=== PATIENT | male | born 1980 | race Caucasian/White ===

== ENCOUNTER 2019-12-02 14:45 | Inpatient (IN) | payer MEDICAID ==
[~2019-12-02] VITALS: Ht 180.3 cm; Wt 93.1 kg
[2019-12-02] MEDS ORDERED: diphenhydrAMINE 25mg capsule PO PRN (16:15)
[2019-12-02] MEDS ORDERED: traZODone 50mg tablet PO PRN (16:15)
[2019-12-02] MEDS ORDERED: loperamide 2mg capsule PO PRN (16:15)
[2019-12-02] MEDS ORDERED: haloperidol 5mg tablet PO PRN (16:15)
[2019-12-02] MEDS ORDERED: acetaminophen 325mg tablet PO PRN (16:15)
[2019-12-02] MEDS ORDERED: magnesium hydroxide 30ml (MOM) UD suspension PO PRN (16:15)
[2019-12-02] MEDS ORDERED: mag hydrox/Alum hydrox/simeth 30ml oral suspension PO PRN (16:15)
[2019-12-02] MEDS ORDERED: LORazepam 1 MG tablet PO PRN ×2 (16:15)
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
--- NOTE | 2019-12-02 17:10 | NUR ---
Pt. given an oral B52 r/t increased agitation during admission assessment, yelling at staff, "Don't poke me with that needle!" Pt. delusional, staff did not have a needle, but he was unable to be redirected. Pt. began kicking at staff and throwing items, no staff was harmed. Obtained order for B52 from Dr. Mckinley, pt. at first refusing, however then consented to oral B52 and was able to be redirected.
--- NOTE | 2019-12-02 18:16 | NUR ---
Pt's Mother: Erica .
[2019-12-02] MEDS ORDERED: OLANZapine **IM** 10 mg inj. IM PRN (18:20)
[2019-12-02] MEDS ORDERED: docusate sod 100mg capsule PO PRN (18:20)
[2019-12-02] MEDS: OLANZapine 2.5MG tablet PO SCH (19:37)
[2019-12-02] MEDS: DOXYCYCLINE 100MG CAPSULE PO SCH (19:37)
[2019-12-02] MEDS: diphenhydrAMINE 25mg capsule PO SCH (19:38)
[2019-12-02] MEDS: haloperidol 5mg tablet PO SCH (19:38)
[2019-12-02] MEDS: LORazepam 1 MG tablet PO SCH (19:40)
[2019-12-02] MEDS: cephalexin 500mg capsule PO SCH ×2 (19:49→23:24)
[2019-12-02 20:00] VITALS: BP 123/81
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
[2019-12-03 07:30] VITALS: BP 128/82
[2019-12-03 07:43] LABS: HEMOGLOBIN A1C 5.4 % (4.5-6.2)
[2019-12-03 07:45] LABS: CHOL/HDL RATIO 4.9 (0.00-4.99); CHOLESTEROL 136 MG/DL (0-200); HDL CHOLESTEROL 28 MG/DL (35-60); LDL CHOLESTEROL 87 MG/DL (50-100); TRIGLYCERIDES 96 MG/DL (20-135)
[2019-12-03] MEDS: cephalexin 500mg capsule PO SCH ×3 (08:19→16:22)
[2019-12-03] MEDS: DOXYCYCLINE 100MG CAPSULE PO SCH ×2 (08:19→20:00)
[2019-12-03] MEDS: OLANZapine 2.5MG tablet PO SCH ×2 (08:19→20:00)
[2019-12-03] MEDS: haloperidol 5mg tablet PO SCH ×2 (08:20→20:00)
[2019-12-03] MEDS: cyanocobalamin 500mcg tablet PO SCH (08:20)
[2019-12-03] MEDS: diphenhydrAMINE 25mg capsule PO SCH ×2 (08:20→20:00)
[2019-12-03] MEDS: thiamine 100mg tablet PO SCH (08:21)
[2019-12-03] MEDS: folic acid 1mg tablet PO SCH (08:21)
[2019-12-03] MEDS: LORazepam 1 MG tablet PO SCH ×2 (08:22→20:00)
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
[2019-12-04 07:55] VITALS: BP 127/70
[2019-12-04] MEDS: LORazepam 1 MG tablet PO SCH ×2 (08:08→20:32)
[2019-12-04] MEDS: diphenhydrAMINE 25mg capsule PO SCH ×2 (08:08→20:33)
[2019-12-04] MEDS: DOXYCYCLINE 100MG CAPSULE PO SCH ×2 (08:09→20:33)
[2019-12-04] MEDS: folic acid 1mg tablet PO SCH (08:09)
[2019-12-04] MEDS: cyanocobalamin 500mcg tablet PO SCH (08:09)
[2019-12-04] MEDS: thiamine 100mg tablet PO SCH (08:09)
[2019-12-04] MEDS: cephalexin 500mg capsule PO SCH ×3 (08:09→16:25)
[2019-12-04] MEDS: haloperidol 5mg tablet PO SCH (08:09)
[2019-12-04] MEDS: OLANZapine 2.5MG tablet PO SCH ×2 (08:10→20:33)
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
[2019-12-04] MEDS: acetaminophen 325mg tablet PO PRN (20:42)
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
[2019-12-05 07:45] VITALS: BP 116/73
[2019-12-05] MEDS: DOXYCYCLINE 100MG CAPSULE PO SCH ×2 (07:57→20:28)
[2019-12-05] MEDS: LORazepam 1 MG tablet PO SCH ×2 (07:58→20:27)
[2019-12-05] MEDS: cyanocobalamin 500mcg tablet PO SCH (07:58)
[2019-12-05] MEDS: folic acid 1mg tablet PO SCH (07:59)
[2019-12-05] MEDS: OLANZapine 2.5MG tablet PO SCH ×2 (07:59→20:27)
[2019-12-05] MEDS: thiamine 100mg tablet PO SCH (07:59)
[2019-12-05] MEDS: cephalexin 500mg capsule PO SCH ×3 (07:59→15:28)
[2019-12-05] MEDS: diphenhydrAMINE 25mg capsule PO SCH ×2 (08:00→20:28)
[2019-12-05] MEDS: acetaminophen 325mg tablet PO PRN (15:30)
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
[2019-12-05 20:38] VITALS: BP 134/79
[2019-12-06] MEDS: cephalexin 500mg capsule PO SCH ×3 (00:03→16:44)
--- NOTE | 2019-12-06 03:29 | NUR ---
[facility] NURSING PROGRESS NOTE Legal hold: 1370 Client on involuntary status for GD Report received from FRANNY Walters with SB[facility] Why are they here: Admitted from the [facility] for court competency; patient was found violating a restraining order and trespassing on property where she once lived with her boyfriend (who currently lives there and filed the order). Per chart, patient began to have mental health issues with the onset of menopause. Per patient, she has been hospitalized in [place], related to anxiety shortly after the onset of menopause. Assessment What has happened this shift: Pt in his room and was alert and oriented. Introduced myself and patient was receptive. He showed no sign of suicidal ideations. Patient frequently asked about God and wanted to know if i knew the holy spirit. He took all his night meds and was curious about his labs. Per patient s' request, he would like blood draws done at the [place] [facility]. Patient resting. S/I, H/I: Denies A/VH: Denies Sleep: through out the night (9 hrs) ADL's: Independent Group attendance: N/A Were Meds taken: yes Any med S/E: None noted Mental Status Exam Appearance: Well put together, wearing his own clothes, hair done. Eye contact: Good Behavior: Isolative Speech: Pressured. Mood: Labile. Goes between friendly and pleasant to irritated and obstinate Affect: Constricted Thought process: Circumstantial Thought Content: Not wanting to be forced to take meds. Cognition: A&Ox3 Insight: Poor Judgment: Poor Interventions PRN's used: None Therapeutic interventions: 1:1 assessment, provided therapeutic communication and active listening, medication administration/education/and monitoring its effects, encouraged bowel regimen, provide a safe and therapeutic environment, q15min safety checks. Restraints/seclusion/emergency medication: N/A Justification of Continued Inpatient Treatment: Patient requires evaluation and treatment for christianity of competency to stand trial.
[2019-12-06 07:36] VITALS: BP 116/71
[2019-12-06] MEDS: cyanocobalamin 500mcg tablet PO SCH (08:02)
[2019-12-06] MEDS: thiamine 100mg tablet PO SCH (08:02)
[2019-12-06] MEDS: diphenhydrAMINE 25mg capsule PO SCH ×2 (08:03→20:11)
[2019-12-06] MEDS: DOXYCYCLINE 100MG CAPSULE PO SCH ×2 (08:03→20:12)
[2019-12-06] MEDS: folic acid 1mg tablet PO SCH (08:03)
[2019-12-06] MEDS: OLANZapine 2.5MG tablet PO SCH ×2 (08:03→20:12)
[2019-12-06] MEDS: LORazepam 1 MG tablet PO SCH ×2 (08:03→20:11)
--- NOTE | 2019-12-06 11:13 | NUR ---
Sutures removed right foot, steri-strips applied, pt tolerated procedure well. Addendum: 12/06/19 at 1114 by Andra Hernandez RN (Lee) Amended: Links added.
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
[2019-12-06] MEDS ORDERED: HYDROcodone/acetaminophen 5mg/325mg tablet PO ONE (19:55)
[2019-12-06 20:00] VITALS: BP 127/88
[2019-12-06] MEDS: lactobacillus rhamnosus 10,000 MMU CELLS/CAPSULE PO SCH (20:12)
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
[2019-12-07 08:06] VITALS: BP 111/64
[2019-12-07] MEDS: DOXYCYCLINE 100MG CAPSULE PO SCH (08:06)
[2019-12-07] MEDS: OLANZapine 2.5MG tablet PO SCH (08:06)
[2019-12-07] MEDS: folic acid 1mg tablet PO SCH (08:06)
[2019-12-07] MEDS: diphenhydrAMINE 25mg capsule PO SCH (08:06)
[2019-12-07] MEDS: cyanocobalamin 500mcg tablet PO SCH (08:06)
[2019-12-07] MEDS: cephalexin 500mg capsule PO SCH ×2 (08:06→12:27)
[2019-12-07] MEDS: LORazepam 1 MG tablet PO SCH (08:07)
[2019-12-07] MEDS: lactobacillus rhamnosus 10,000 MMU CELLS/CAPSULE PO SCH (08:07)
[2019-12-07] MEDS: thiamine 100mg tablet PO SCH (08:23)
--- NOTE | 2019-12-07 08:41 | NUR ---
Initial: Pt admit w/ psychosis hx etoh, meth, and cannabis abuse per EMR receiving thiamin, folic, B12. PO 75-100% regular diet meeting needs. LBM 12/04. No nutrition concerns at this time. Will continue to monitor. Rec: 1. continue regular diet 2. bowel care as needed 3. wt per rx Addendum: 12/07/19 at [address] Amended: Links added.
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
[2019-12-07] MEDS ORDERED: DOXY-224 PO (16:32)
[2019-12-07] MEDS ORDERED: LACT1CAP26 PO (16:32)
[2019-12-07] MEDS ORDERED: TRAZ-251 PO (16:32)
[2019-12-07] MEDS ORDERED: OLAN10TA21 PO (16:32)
[2019-12-07] MEDS ORDERED: OLAN2.5T28 PO (16:32)
[2019-12-07] MEDS ORDERED: CEPH500C5 PO (16:32)
--- NOTE | 2019-12-07 17:51 | NUR ---
Pt discharged at 1735, ambulated off the unit accompanied by PCT to friend Henrry Mir awaiting him outside. Pt expressed understanding of his discharge prescriptions and instructions. Pt discharged on 2 different ABX, wound care education provided for right foot laceration, provided pt with some packets of ABX ointment and large bandaids. Pt expressed understanding of discharge instructions. Pt states he will [facility] with the [facility], he has an appointment scheduled near the end of this month.
== END 2019-12-07 17:35 | disposition short-term general hospital (02) | DRG 751 ==
LOC: ADULT MH 16:07
PROVIDERS: ADMIT Psychiatry & Neurology Psychiatry; ATTEND Psychiatry & Neurology Psychiatry
DX: F29 Unspecified psychosis not due to a substance or known physiological condition (principal); S91.311A Laceration without foreign body, right foot, initial encounter; F15.10 Other stimulant abuse, uncomplicated; F12.10 Cannabis abuse, uncomplicated; F10.10 Alcohol abuse, uncomplicated; F17.200 Nicotine dependence, unspecified, uncomplicated; Z59.0 Homelessness; X83.8XXA Intentional self-harm by other specified means, initial encounter; Y93.89 Activity, other specified; Y92.89 Other specified places as the place of occurrence of the external cause; Y99.8 Other external cause status
CPT/HCPCS: 36415; 80061; 83036; 87081; Q0163

== ENCOUNTER 2020-06-07 12:14 | Inpatient (IN) | payer MEDICAID, OTHER ==
[~2020-06-07] VITALS: Ht 147.3 cm; Wt 102.3 kg
[~2020-06-07 12:14] MED LIST: CEPH500C5 PO; DOXY-224 PO; LACT1CAP26 PO; OLAN10TA21 PO; OLAN2.5T28 PO; TRAZ-251 PO
[2020-06-07] MEDS ORDERED: acetaminophen 325mg tablet PO PRN ×2 (14:40)
[2020-06-07] MEDS ORDERED: magnesium hydroxide 30ml (MOM) UD suspension PO PRN (14:40)
[2020-06-07] MEDS ORDERED: loperamide 2mg capsule PO PRN (14:40)
[2020-06-07] MEDS ORDERED: traZODone 50mg tablet PO PRN (14:40)
[2020-06-07] MEDS ORDERED: mag hydrox/Alum hydrox/simeth 30ml oral suspension PO PRN (14:40)
[2020-06-07 14:45] VITALS: BP 112/70
[2020-06-07] MEDS ORDERED: AMOX-117 PO (16:33)
[2020-06-07] MEDS ORDERED: olanzapine 10mg tablet PO PRN (16:40)
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
[2020-06-07 19:41] VITALS: BP 117/67
[2020-06-07] MEDS: amox tr/potassium clavulanate 875/125mg TAB PO SCH ×2 (20:00→20:03)
[2020-06-07] MEDS: olanzapine 10mg tablet PO SCH ×2 (20:03→20:30)
--- NOTE | 2020-06-07 23:36 | NUR ---
Nursing Progress Note Legal hold: 5150 for grave disability. Report received from Marine BLANTON with use of SBAR Why are they here: The patient was admitted on a 5150 hold for grave disability after being medically cleared in the ER. He was initially brought to the ER by [facility] deputies from the retirement 2nd to disorganized and bizarre behaviors while incarcerated. He had reportedly "playing in the toilet and drinking from it" He had not slept for two nights in the retirement. Prior to his arrest he had been using methamphetamine and had a positive tox screen in the retirement. While being medically cleared in the ER his behavior continued to be disordered and had to be redirected from eating non food items ie, bath wipes and IV end caps. Assessment What has happened this shift: The patient has been sleeping soundly since the beginning of the shift. He was difficult to fully assess because he was drowsy and his replies were mumbling and difficult to understand at times. He denied that he heard voices or felt paranoid. He stated his mood was "good" He was asked why he cut his foot and he stated, "for not believing in deloris" "To get some help and release some energy" but he was not able to elaborate. He refused all medications offered including the ABX for his foot. Insight and judgement are very impaired. Eye contact was minimal. Justification of Continued Inpatient Treatment: The patient remains disorganized with odd and bizarre behaviors. He is refusing all medications. He remains a risk to harm himself 2nd to his delusional thoughts.
[2020-06-08] MEDS: amox tr/potassium clavulanate 875/125mg TAB PO SCH ×3 (03:34→22:30)
[2020-06-08] MEDS: LORazepam 1 MG tablet PO PRN (03:34)
[2020-06-08 08:51] VITALS: BP 126/56
[2020-06-08 11:07] LABS: HEMOGLOBIN A1C 5.3 % (4.5-6.2)
[2020-06-08 11:13] LABS: CHOLESTEROL 124 MG/DL (0-200); HDL CHOLESTEROL 31 MG/DL (35-60); LDL CHOLESTEROL 80 MG/DL (50-100); TRIGLYCERIDES 92 MG/DL (20-135)
--- NOTE | 2020-06-08 17:49 | NUR ---
Nursing Progress Note: Legal hold: 5150 for grave disability. Report received from Palmira BLANTON with use of SBAR Why are they here: The patient was admitted on a 5150 hold for grave disability after being medically cleared in the ER. He was initially brought to the ER by [facility] deputies from the half-way 2nd to disorganized and bizarre behaviors while incarcerated. He had reportedly "playing in the toilet and drinking from it" He had not slept for two nights in the half-way. Prior to his arrest he had been using methamphetamine and had a positive tox screen in the half-way. While being medically cleared in the ER his behavior continued to be disordered and had to be redirected from eating non food items ie, bath wipes and IV end caps. Assessment What has happened this shift: Pt was out of room for meals though mostly isolative to self today. At one point pt was repeatedly pressing his call light. Staff would answer the light and pt would indicate that he felt scared and wanted his family. Pt continues to be disorganized. He repeatedly strips the beds in his room, staff remakes them and he strips them again. Pt denied depression stating, "no, I'm better." Pt has decided he likes "B" bed better than "A" bed. Before dinner, pt had once again had completely stripped both beds in the room. He was sitting in a chair coloring in a coloring book. Asked pt why he had stripped the beds. Pt replied that he was getting out of here tonight. Reality orientation provided that he was not being discharged tonight and soon would need some linens to sleep. Pt does not remember how he got here. When asked him why he thought he was here, he replied, "trying to kill myself with alcohol and drugs." Asked pt if he remembered why he had been in half-way. Pt replied, "fear." Asked pt what he was afraid of, pt answered, "taking advantage of my heart." S/I, H/I: Pt denies. A/VH: Pt denies. Sleep: Pt slept 10 hours last night per noc shift report. ADL's: Independent Group attendance: No Were meds taken: Yes though no psych meds, just po ABX Any med S/E: N/A Mental Status Exam Appearance: Somewhat overweight man with balding greyish, reddish hair, ortega, and moustache wearing clean green unit scrubs. Eye contact: Good Behavior: Disorganized, repeatedly pressing call light and stripping both beds in his room, mostly isolative to self. Speech: Clear, audible, poverty of speech Mood: Anxious Affect: Disorganized Thought process: Poverty of thought, disorganized, paranoid, delusional Thought Content: He feels scared and wants his family. Cognition: A/O X 2 Insight: Impaired Judgment: Impaired Interventions PRN's used: None Therapeutic interventions: 1:1 assessment, therapeutic communication, active listening, ensured contract for safety, PO ABX administration/education/monitoring, encouragement to come out of room, encouragement to take medications, behavior monitoring and intervention as needed; reality orientation, redirection, reassurance that pt is safe here, positive reinforcement, Q 15 minute safety checks. Restraints/seclusion/emergency medication: None Justification of Continued Inpatient Treatment: The patient remains disorganized with odd and bizarre behaviors. He is resistant to medications. He remains a risk to harm himself 2nd to his delusional thoughts.
[2020-06-08] MEDS ORDERED: olanzapine 10mg tablet PO SCH (21:55)
[2020-06-09] MEDS: LORazepam 1 MG tablet PO PRN ×2 (01:43→19:31)
--- NOTE | 2020-06-09 06:17 | NUR ---
Nursing Progress Note: Legal hold: 5150 for grave disability. Report received from FRANNY Cates with use of SBAR Why are they here: The patient was admitted on a 5150 hold for grave disability after being medically cleared in the ER. [facility] to disorganized and bizarre behaviors while incarcerated. He had reportedly "playing in the toilet and drinking from it" He had not slept for two nights in the detention. Prior to his arrest he had been using methamphetamine and had a positive tox screen in the detention. While being medically cleared in the ER his behavior continued to be disordered and had to be redirected from eating non food items ie, bath wipes and IV end caps. Assessment What has happened this shift: Patient is awake and isolating in his room, he sleeps intermittently. Patient is disorganized. Tangential speech. Patient is friendly. Patient takes his medication. Patient later came to nursing station and advised the garment inspector that he had pee'd on his medication. It is unknown if the medications were cheeked or regurgitated. Late night this patient paced the hallways and present with paranoia. S/I, H/I: Pt denies. A/VH: Pt denies. Sleep: See sleep hours. ADL's: Independent. Group attendance: No group on nights. Were meds taken: Non compliant. Any med S/E: N/A Mental Status Exam Appearance: Elderly male, disheveled, wearing scrups. Eye contact: Fair. Behavior: Disorganized, Isolative and disorganized. Speech: Clear, audible, poverty of speech, Mood: Mild anxiety. Affect: Disorganized. Thought process: Poverty of thought, disorganized, paranoid, delusional Thought Content: Talks happily about his five year old son.. Cognition: A/O X 2, Insight: Poor. Judgment: Poor. Interventions PRN's used: None. Therapeutic interventions: 1:1 assessment, therapeutic communication, active listening, ensured contract for safety, PO ABX administration/education/monitoring, encouragement to come out of room, encouragement to take medications, behavior monitoring and intervention as needed; reality orientation, redirection, reassurance that pt is safe here, positive reinforcement, Q 15 minute safety checks. Restraints/seclusion/emergency medication: None. Justification of Continued Inpatient Treatment: The patient remains disorganized with odd and bizarre behaviors. He is resistant to medications. He remains a risk to harm himself 2nd to his delusional thoughts.
[2020-06-09] MEDS: amox tr/potassium clavulanate 875/125mg TAB PO SCH ×2 (08:05→19:31)
[2020-06-09 09:55] VITALS: BP 136/85
--- NOTE | 2020-06-09 10:00 | NUR ---
Group Therapy: Process Group This Clinicians goals for this process group were as follows: (1) Ask scaling questions about patients current anxiety, depression, and irritability symptoms as a check-in. (2) Share with patients psychoeducation about the importance of being able to identify safe, and supportive people who can assist them with their mental and emotional needs. (3) Share psychoeducation on interpersonal boundaries and considerations to assist patients in developing the ability to discern which groups and individuals will be helpful in assisting them during times of emotional escalation and crisis. (4) Engage patients in discussion of the topics discussed within the group milieu. Patient presented as properly oriented x4 during the process group. Patient was dressed in green hospital scrubs within the milieu. Psychomotor activity was unremarkable. Patient's thought content was clear, and concrete. Patient's thought process was clear, coherent, and linear. This Clinician did not observe Patient responding to any internal stimuli during session. The rate, latency, and tone of Patients speech was within normal limits. Patients speech was clear, and understandable. Patient maintained regular eye contact with this Clinician. Patient presented in calm euthymic mood, with congruent affect during the process group. Patient presented as open, cooperative, and nonobtrusive within the group milieu. Patient presented as verbally engaged during the process group discussion of interpersonal boundaries in the context of identifying safe, and supportive people that one could speak to in order to receive mental health support. Patient offered the insightful comment that one needed to be honest, and, "Love" oneself in order to be able to reach out successfully to others to receive appropriate mental health care. This Clinician validated the importance of healthy self-love and self-care as it relates to involving health support people in patients' lives. Asif Hidalgo MA, ZARA Addendum: 06/10/20 at 0844 by Asif Hidalgo Amended: Links added.
--- NOTE | 2020-06-09 17:43 | NUR ---
Nursing Progress Note: Legal hold: 5150 for grave disability. Report received from Palmira BLANTON with use of SBAR Why are they here: The patient was admitted on a 5150 hold for grave disability after being medically cleared in the ER. He was initially brought to the ER by [facility] to disorganized and bizarre behaviors while incarcerated. He had reportedly "playing in the toilet and drinking from it" He had not slept for two nights in the [facility]. Prior to his arrest he had been using methamphetamine and had a positive tox screen in the [facility]. While being medically cleared in the ER his behavior continued to be disordered and had to be redirected from eating non food items ie, bath wipes and IV end caps. Assessment What has happened this shift: Pt up and visible on the unit today. Pt has bright affect and is friendly upon approach. Pt denies depression and denies suicidal thoughts. Pt also denies homicidal thoughts. Pt asked for the guitar and played for a few hours in his room taking turns with his roommate. They did not have any meaningful conversation, just playing the guitar which pt is very talented in. Pt did not exhibit any delusional thought patterns today. Pt did c/o bilateral feet hurting this afternoon and was given tylenol and directed to elevate his feet which he complied with. S/I, H/I: Pt denies. A/VH: Pt denies. Sleep:5.5 hours on noc ADL's: Independent Group attendance: No Were meds taken: Yes though no psych meds, just po ABX Any med S/E: N/A Mental Status Exam Appearance: Somewhat overweight man with balding greyish, reddish hair, ortega, and moustache wearing clean green unit scrubs. Eye contact: Good Behavior: Disorganized, repeatedly pressing call light and stripping both beds in his room, mostly isolative to self. Speech: Clear, audible, poverty of speech Mood: Anxious Affect: Disorganized Thought process: Poverty of thought, disorganized, paranoid, delusional Thought Content: He feels scared and wants his family. Cognition: A/O X 2 Insight: Impaired Judgment: Impaired Interventions PRN's used: None Therapeutic interventions: 1:1 assessment, therapeutic communication, active listening, ensured contract for safety, PO ABX administration/education/monitoring, encouragement to come out of room, encouragement to take medications, behavior monitoring and intervention as needed; reality orientation, redirection, reassurance that pt is safe here, positive reinforcement, Q 15 minute safety checks. Restraints/seclusion/emergency medication: None Justification of Continued Inpatient Treatment: The patient remains disorganized with odd and bizarre behaviors. He is resistant to medications. He remains a risk to harm himself 2nd to his delusional thoughts.
[2020-06-09 19:00] VITALS: BP 136/85
[2020-06-09] MEDS ORDERED: OLANZapine 5mg rapidly disint. tablet PO ONE (19:30)
[2020-06-09] MEDS ORDERED: OLANZAPINE 5 MG TABLET PO SCH (21:00)
--- NOTE | 2020-06-10 06:24 | NUR ---
Nursing Progress Note: Legal hold: 5150 for grave disability. Report received from FRANNY Bergman with use of SBAR Why are they here: The patient was admitted on a 5150 hold for grave disability after being medically cleared in the ER. [facility] disorganized and bizarre behaviors while incarcerated. He had reportedly "playing in the toilet and drinking from it" He had not slept for two nights in the half-way. Prior to his arrest he had been using methamphetamine and had a positive tox screen in the half-way. While being medically cleared in the ER his behavior continued to be disordered and had to be redirected from eating non food items ie, bath wipes and IV end caps. Assessment What has happened this shift: Patient isolates in room. Interview by YARELIS Moura. Patient advised he has a mental illness, psychosis. 1:1 Interview with patient in room. Patient tells this chart writer that as soon as he leaves this unit he will drink alcohol, have sex, and play music. In addition he believes drinking alcohol will eliminate his psychosis. YARELIS Moura advised. S/I, H/I: Pt denies. A/VH: Pt denies. Sleep: See sleep hours. ADL's: Independent. Group attendance: No group on nights. Were meds taken: Non compliant. Any med S/E: N/A Mental Status Exam Appearance: Elderly male, disheveled, wearing scrups. Eye contact: Fair. Behavior: Disorganized, Isolative and disorganized. Speech: Clear, audible, poverty of speech, Mood: Mild anxiety. Affect: Disorganized. Thought process: Poverty of thought, disorganized, paranoid, delusional Thought Content: Talks happily about his five year old son.. Cognition: A/O X 2, Insight: Poor. Judgment: Poor. Interventions PRN's used: None. Therapeutic interventions: 1:1 assessment, therapeutic communication, active listening, ensured contract for safety, PO ABX administration/education/monitoring, encouragement to come out of room, encouragement to take medications, behavior monitoring and intervention as needed; reality orientation, redirection, reassurance that pt is safe here, positive reinforcement, Q 15 minute safety checks. Restraints/seclusion/emergency medication: None. Justification of Continued Inpatient Treatment: The patient remains disorganized with odd and bizarre behaviors. He is resistant to medications. He remains a risk to harm himself 2nd to his delusional thoughts.
[2020-06-10 08:06] VITALS: BP 113/81
[2020-06-10] MEDS: amox tr/potassium clavulanate 875/125mg TAB PO SCH ×2 (08:32→20:09)
[2020-06-10] MEDS: LORazepam 1 MG tablet PO PRN (16:12)
--- NOTE | 2020-06-10 16:16 | NUR ---
Nursing Progress Note: Legal hold: 5150 for grave disability. Report received from Erica Stover RN with use of SBAR Why are they here: The patient was admitted on a 5150 hold for grave disability after being medically cleared in the ER. [facility] and bizarre behaviors while incarcerated. He had reportedly "playing in the toilet and drinking from it" He had not slept for two nights in the correction. Prior to his arrest he had been using methamphetamine and had a positive tox screen in the correction. While being medically cleared in the ER his behavior continued to be disordered and had to be redirected from eating non food items ie, bath wipes and IV end caps. Assessment What has happened this shift: Pt RIS most of the shift. Pt requested Ativan stating, "I think I need something I'm out here laughing so loud and not sure why." Ativan given as requested then pt immediately went in the BR and began throwing up states, "I just don't like drugs." S/I, H/I: Pt denies. A/VH: Pt denies. Sleep:Did not sleep this shift ADL's: Independent Group attendance: No Were Meds taken: Yes though no psych Meds, just po ABX Any med S/E: N/A Mental Status Exam Appearance: Green Scrubs Eye contact: Good Behavior: Disorganized Speech: Clear, audible, poverty of speech Mood: Anxious Affect: Disorganized Thought process: Poverty of thought, disorganized, paranoid, delusional Thought Content: He feels scared and wants his family. Cognition: A/O X 2 Insight: Impaired Judgment: Impaired Interventions PRN's used: None Therapeutic interventions: Provided therapeutic communication and active listening throughout the shift due to pt RIS all day, encouraged attendance of group and shower, medication administration/education/monitoring, q 15 min safety checks. Restraints/seclusion/emergency medication: None Justification of Continued Inpatient Treatment: The patient remains disorganized with odd and bizarre behaviors. He is resistant to medications. He remains a risk to harm himself 2nd to his delusional thoughts.
[2020-06-10] MEDS: divalproex sod 125mg sprinkle cap PO SCH (17:37)
[2020-06-10 19:17] VITALS: BP 131/102
[2020-06-10 19:18] VITALS: BP 129/93
[2020-06-10] MEDS: oxcarbazepine 150mg tablet PO SCH (20:10)
[2020-06-10] MEDS: docusate sod 100mg capsule PO SCH (20:10)
[2020-06-10] MEDS ORDERED: ARIPIPRAZOLE 10 MG TABLET PO SCH (21:00)
[2020-06-10] MEDS ORDERED: OLANZapine 5mg rapidly disint. tablet PO SCH (21:00)
--- NOTE | 2020-06-11 04:51 | NUR ---
Nursing Progress Note: Legal hold: 5150 for grave disability. Report received from FRANNY Bergman with use of SBAR Why are they here: The patient was admitted on a 5150 hold for grave disability after being medically cleared in the ER. [facility] and bizarre behaviors while incarcerated. He had reportedly "playing in the toilet and drinking from it" He had not slept for two nights in the [facility]. Prior to his arrest he had been using methamphetamine and had a positive tox screen in the [facility]. While being medically cleared in the ER his behavior continued to be disordered and had to be redirected from eating non food items ie, bath wipes and IV end caps. Assessment What has happened this shift: Patient was observed sitting in the hallway talking under his breath to no one in particular. He is very pleasant on approach and makes good eye contact and smiles. He states, "Yeah I don't even know why I am here, I do drugs and should probably just be in a rehab not a mental hospital." He then asks job specification writer if he laughs too much or too little. "How much is a normal rate of laughter?" He is upbeat and lighthearted on interview and compliant with HS medications. S/I, H/I: Pt denies. A/VH: Pt denies. Sleep: See sleep hours. ADL's: Independent. Group attendance: No group on nights. Were meds taken: compliant Any med S/E: None reported, none observed Mental Status Exam Appearance: WNL Eye contact: Fair Behavior: Disorganized Speech: Clear, audible Mood: upbeat Affect: jovial Thought process: disorganized Thought Content: wanting to go to rehab Cognition: A/O X 2, Insight: Poor. Judgment: Poor. Interventions PRN's used: None. Therapeutic interventions: 1:1 assessment, therapeutic communication, active listening, ensured contract for safety, PO ABX administration/education/monitoring, encouragement to come out of room, encouragement to take medications, behavior monitoring and intervention as needed; reality orientation, redirection, reassurance that pt is safe here, positive reinforcement, Q 15 minute safety checks. Restraints/seclusion/emergency medication: None. Justification of Continued Inpatient Treatment: The patient remains disorganized with odd and bizarre behaviors. He is in need of medication stabilization
[2020-06-11 07:58] VITALS: BP 107/65
[2020-06-11] MEDS: amox tr/potassium clavulanate 875/125mg TAB PO SCH ×2 (08:31→21:04)
[2020-06-11] MEDS: oxcarbazepine 150mg tablet PO SCH ×2 (08:31→21:05)
[2020-06-11] MEDS: divalproex sod 125mg sprinkle cap PO SCH ×3 (08:31→17:59)
[2020-06-11] MEDS: docusate sod 100mg capsule PO SCH ×2 (08:31→21:03)
--- NOTE | 2020-06-11 14:57 | NUR ---
Nursing Progress Note: Legal hold: 5150 for grave disability. Report received from Erica Stover RN with use of SBAR Why are they here: [facility] to disorganized and bizarre behaviors while incarcerated. He had reportedly "playing in the toilet and drinking from it" He had not slept for two nights in the long term. Prior to his arrest he had been using methamphetamine and had a positive tox screen in the long term. While being medically cleared in the ER his behavior continued to be disordered and had to be redirected from eating non food items ie, bath wipes and IV end caps. Assessment What has happened this shift: Provided education on pt's medications and his diagnosis'. Pt agrees with treatment yet ask numerous times throughout the day if this nurse knows when he will be leaving. Pt referred to his current provider. Pt is calm today his mood is less anxious. Some pacing but less then yesterday. S/I, H/I: Pt denies. A/VH: Pt denies. Sleep: a few short naps during the day ADL's: Independent Group attendance: No Were Meds taken: Yes Any med S/E: pt c/o sedation in the AM encouraged him to talk to his provider today regarding night meds. Also education provided on starting new meds and the body getting rested up. Mental Status Exam Appearance: Green Scrubs Eye contact: Good Behavior: cooperative; pacing some due to anticipation of discharge Speech: Clear, audible, poverty of speech Mood: decreased anxiety yet remains somewhat anxious Affect: blunted Thought process: Poverty of thought, disorganized, paranoid, delusional Thought Content: He feels scared and wants his family. Cognition: A/O X 2 Insight: Impaired Judgment: Impaired Interventions PRN's used: None Therapeutic interventions: Provided therapeutic communication and active listening, encouraged attendance of group and shower, medication administration/education/monitoring, q 15 min safety checks. Restraints/seclusion/emergency medication: None Justification of Continued Inpatient Treatment: The patient remains disorganized with odd and bizarre behaviors. He is resistant to medications. He remains a risk to harm himself 2nd to his delusional thoughts.
[2020-06-11] MEDS ORDERED: OLANZapine 5mg rapidly disint. tablet PO PRN (17:35)
[2020-06-11] MEDS: LORazepam 1 MG tablet PO PRN (18:39)
[2020-06-11 19:35] VITALS: BP 137/71
[2020-06-11] MEDS ORDERED: aripiprazole 5mg tablet PO SCH (21:00)
--- NOTE | 2020-06-12 00:49 | NUR ---
Nursing Progress Note: Legal hold: 5250 for grave disability. Report received from FRANNY Bergman with use of SBAR Why are they here: The patient was admitted on a 5150 hold for grave disability after being medically cleared in the ER. [facility] and bizarre behaviors while incarcerated. He had reportedly "playing in the toilet and drinking from it" He had not slept for [facility] nights in the [facility]. Prior to his arrest he had been using methamphetamine and had a [facility] tox screen [facility] the [facility]. While being medically cleared in the ER his behavior continued to be disordered and had to be redirected from eating non food items ie, bath wipes and IV end caps. Assessment What has happened this shift: Patient was up in the hallway at shift change, but isolates to his room most of the shift. He is observed keeping to himself, and appearing inwardly focused. He is not very talkative, but is polite on approach. He lays in bed with headphones on and falls asleep early. He is woken up and is compliant with HS medications and 1:1 assessment. S/I, H/I: Pt denies. A/VH: Pt denies. Sleep: See sleep hours. ADL's: Independent. Group attendance: No group on nights. Were meds taken: compliant Any med S/E: None reported, none observed Mental Status Exam Appearance: WNL Eye contact: Fair Behavior: Disorganized Speech: Clear, audible Mood: upbeat Affect: jovial Thought process: disorganized Thought Content: wanting to go to rehab Cognition: A/O X 2, Insight: Poor. Judgment: Poor. Interventions PRN's used: None. Therapeutic interventions: 1:1 assessment, therapeutic communication, active listening, ensured contract for safety, PO ABX administration/education/monitoring, encouragement to come out of room, encouragement to take medications, behavior monitoring and intervention as needed; reality orientation, redirection, reassurance that pt is safe here, positive reinforcement, Q 15 minute safety checks. Restraints/seclusion/emergency medication: None. Justification of Continued Inpatient Treatment: The patient remains disorganized with odd and bizarre behaviors. He is in need of medication stabilization
[2020-06-12 08:00] VITALS: BP 108/60
[2020-06-12] MEDS: amox tr/potassium clavulanate 875/125mg TAB PO SCH ×2 (08:39→20:24)
[2020-06-12] MEDS: oxcarbazepine 150mg tablet PO SCH ×2 (08:39→20:24)
[2020-06-12] MEDS: docusate sod 100mg capsule PO SCH ×2 (08:39→20:24)
[2020-06-12] MEDS: divalproex sod 125mg sprinkle cap PO SCH ×3 (08:39→17:51)
--- NOTE | 2020-06-12 14:38 | NUR ---
Reassessment: Pt PO 75-100% avg regular diet meeting needs. Last BM 06/11. No nutrition concerns at this time. Will continue to monitor. Recommend: 1. continue regular diet 2. bowel care as needed 3. weekly weights Addendum: 06/12/20 at [address] Amended: Links added.
[2020-06-12] MEDS: LORazepam 1 MG tablet PO PRN (15:28)
--- NOTE | 2020-06-12 16:14 | NUR ---
Nursing Progress Note: Legal hold: 5150 for grave disability. Report received from FRANNY Schmitz with use of SBAR Why are they here: [facility] to disorganized and bizarre behaviors while incarcerated. He had reportedly "playing in the toilet and drinking from it" He had not slept for two nights in the [facility]. Prior to his arrest he had been using methamphetamine and had a positive tox screen in the [facility]. While being medically cleared in the ER his behavior continued to be disordered and had to be redirected from eating non food items ie, bath wipes and IV end caps. Assessment What has happened this shift: Pt observed watching football, playing the guitar and interacting with peers. He became "sad" and anxious with another pt became mentally unstable and requested an Ativan. Pt given Ativan PRN with a snack then laid down and rested. S/I, H/I: Pt denies. A/VH: Pt denies. Sleep: a few short naps during the day ADL's: Independent Group attendance: No Were Meds taken: Yes Any med S/E: None noted or reported today Mental Status Exam Appearance: Green Scrubs Eye contact: Good Behavior: cooperative; pacing some due to anticipation of discharge Speech: Clear, audible Mood: decreased anxiety yet remains somewhat anxious Affect: blunted Thought process: Poverty of thought, disorganized, paranoid, delusional Thought Content: He feels scared and wants his family. Cognition: A/O X 2 Insight: Impaired Judgment: Impaired Interventions PRN's used: None Therapeutic interventions: Provided therapeutic communication and active listening, encouraged attendance of group and shower, medication administration/education/monitoring, q 15 min safety checks. Restraints/seclusion/emergency medication: None Justification of Continued Inpatient Treatment: The patient remains disorganized with odd and bizarre behaviors. He is resistant to medications. He remains a risk to harm himself 2nd to his delusional thoughts.
[2020-06-12 19:39] VITALS: BP 137/71
[2020-06-12] MEDS ORDERED: aripiprazole 5mg tablet PO SCH (21:00)
--- NOTE | 2020-06-13 02:29 | NUR ---
Nursing Progress Note: Legal hold: 5250 for grave disability. Report received from FRANNY Bergman with use of SBAR Why are they here: The patient was admitted on a 5150 hold for grave disability after being medically cleared in the ER. [facility] disorganized and bizarre behaviors while incarcerated. He had reportedly "playing in the toilet and drinking from it" He had not slept for two nights in the skilled nursing. Prior to his arrest he had been using methamphetamine and had a positive tox screen in the skilled nursing. While being medically cleared in the ER his behavior continued to be disordered and had to be redirected from eating non food items ie, bath wipes and IV end caps. Assessment What has happened this shift: The patient was sleeping at shift change. He woke later and came out of his room. The patient is friendly, cooperative, and respectful, but has nothing to offer due to lack of insight. The patient tells this copywriter that he believes there is nothing wrong with him, and he won't continue medications when he leaves. He was compliant with medications, and spent most of the evening isolated to his room. S/I, H/I: Denies. A/VH: Denies. Sleep: See sleep hours. ADL's: Independent. Group attendance: No group on nights. Were meds taken: Yes Any med S/E: None reported, none observed Mental Status Exam Appearance: WNL Eye contact: Good Behavior: Disorganized, isolative, anxious Speech: Clear, audible Mood: "Good" Affect: Full Thought process: disorganized Thought Content: wanting to go to rehab Cognition: A/O X 2, Insight: Poor. Judgment: Poor. Interventions PRN's used: None. Therapeutic interventions: 1:1 assessment, therapeutic communication, active listening, ensured contract for safety, PO ABX administration/education/monitoring, encouragement to come out of room, encouragement to take medications, behavior monitoring and intervention as needed; reality orientation, redirection, reassurance that pt is safe here, positive reinforcement, Q 15 minute safety checks. Restraints/seclusion/emergency medication: None. Justification of Continued Inpatient Treatment: The patient remains disorganized with odd and bizarre behaviors. He is in need of medication stabilization
[2020-06-13 08:00] VITALS: BP 126/66
[2020-06-13] MEDS: divalproex sod 125mg sprinkle cap PO SCH ×2 (08:38→13:34)
[2020-06-13] MEDS: amox tr/potassium clavulanate 875/125mg TAB PO SCH (08:38)
[2020-06-13] MEDS: oxcarbazepine 150mg tablet PO SCH (08:38)
[2020-06-13] MEDS: docusate sod 100mg capsule PO SCH (08:38)
[2020-06-13] MEDS: LORazepam 1 MG tablet PO PRN (15:28)
[2020-06-13] MEDS ORDERED: OXCA300T16 PO (15:52)
[2020-06-13] MEDS ORDERED: AMOX-580 PO (15:52)
[2020-06-13] MEDS ORDERED: ARIP5TAB60 PO (15:52)
[2020-06-13] MEDS ORDERED: DIVA125C2 PO (15:52)
--- NOTE | 2020-06-13 16:53 | NUR ---
DISCHARGE NOTE: Legal hold: 5150 for grave disability Why are they here: He was initially brought to the ER by [facility] deputies from the correction 2nd to disorganized and bizarre behaviors while incarcerated. He had reportedly "playing in the toilet and drinking from it" He had not slept for two nights in the correction. Prior to his arrest he had been using methamphetamine and had a positive tox screen in the correction. While being medically cleared in the ER his behavior continued to be disordered and had to be redirected from eating non food items ie, bath wipes and IV end caps. Pt discharged home picked up by a friend from [employer]. Pt denies smoking cessation resources. Pictures of admit wounds completed. Pt given all his personal belongings by BRYCE Erwin. Pt is calm and cooperative. He reports he plans on continuing his medications when he gets home.
== END 2020-06-13 16:45 | disposition home or self-care (01) | DRG 751 ==
LOC: ADULT MH 14:33
PROVIDERS: ADMIT Psychiatry & Neurology Psychiatry; ATTEND Psychiatry & Neurology Psychiatry
DX: F29 Unspecified psychosis not due to a substance or known physiological condition (principal); F31.9 Bipolar disorder, unspecified; F15.10 Other stimulant abuse, uncomplicated; F10.10 Alcohol abuse, uncomplicated; F12.10 Cannabis abuse, uncomplicated; Z79.899 Other long term (current) drug therapy; Z81.8 Family history of other mental and behavioral disorders; Z82.3 Family history of stroke; Z56.0 Unemployment, unspecified; Z82.49 Family history of ischemic heart disease and other diseases of the circulatory system
CPT/HCPCS: 36415; 80061; 83036; 87081

== ENCOUNTER 2020-08-09 11:00 | Emergency (ER) | payer OTHER, MEDICAID ==
[~2020-08-09] VITALS: Ht 180.3 cm; Wt 100.0 kg
[~2020-08-09 11:00] MED LIST changes: +AMOX-580 PO; +ARIP5TAB60 PO; -CEPH500C5 PO; +DIVA125C2 PO; -DOXY-224 PO; -LACT1CAP26 PO; -OLAN10TA21 PO; -OLAN2.5T28 PO; +OXCA300T16 PO; -TRAZ-251 PO
[2020-08-09 11:47] LABS: BASOPHILS % (AUTO) 0.4 % (0-1); EOSINOPHILS # (AUTO) 0.1 X10'3 (0-0.9); MEAN CORPUSCULAR HGB CONC 33.8 g/dL (33.0-36.5); MONOCYTES # (AUTO) 0.6 X10'3 (0-0.9); RED CELL DISTRIBUTION WIDTH 14.1 % (11.5-14.5); WHITE BLOOD COUNT 6.1 X10'3 (4.5-11.0)
[2020-08-09 11:48] LABS: EOSINOPHILS % (AUTO) 1.2 % (0-6); HEMATOCRIT 49.3 % (42.0-52.0); HEMOGLOBIN 16.7 g/dl (14.0-17.9); LYMPHOCYTES # (AUTO) 1.7 X10'3 (1.1-4.8); LYMPHOCYTES % (AUTO) 28.2 % (21-51); MEAN CORPUSCULAR HEMOGLOBIN 27.7 PG (27.0-31.0); MEAN CORPUSCULAR VOLUME 82.1 FL (78-98); MEAN PLATELET VOLUME 11.1 FL (7.4-10.4); MONOCYTES % (AUTO) 9.4 % (2-12); NEUTROPHILS # (AUTO) 3.7 X10'3 (1.8-7.7); NEUTROPHILS % (AUTO) 60.8 % (42-75); RED BLOOD COUNT 6.01 X10'6 (4.70-6.10)
[2020-08-09 11:54] LABS: PARTIAL THROMBOPLASTIN TIME 29 SECONDS (22-32)
[2020-08-09 11:55] LABS: ALANINE AMINOTRANSFERASE 27 U/L (12-78); ALBUMIN 3.8 G/DL (3.4-5.0); ALBUMIN/GLOBULIN RATIO 0.9 (1.1-1.5); ALKALINE PHOSPHATASE 81 IU/L (46-116); ANION GAP 10 (8-16); ASPARTATE AMINO TRANSFERASE 23 U/L (10-37); BILIRUBIN,TOTAL 0.5 MG/DL (0.1-1.0); BLOOD UREA NITROGEN 12 MG/DL (7-18); CALCIUM 9.1 MG/DL (8.5-10.1); CHLORIDE 106 MMOL/L (99-107); CREATININE 0.92 MG/DL (0.60-1.10); GLUCOSE 110 MG/DL (70-104); POTASSIUM 4.5 MMOL/L (3.5-5.1); SODIUM 142 MMOL/L (135-145); TOTAL CARBON DIOXIDE 25.8 MMOL/L (24-32); eGFR > 90 ML/MIN
[2020-08-09 12:13] LABS: PLATELET COUNT 5 X10'3 (140-440)
[2020-08-09 13:26] LABS: D-DIMER 0.95 MG/L FEU (0-0.50); PARTIAL THROMBOPLASTIN TIME 29 SECONDS (22-32)
[2020-08-09 13:31] LABS: PLATELET COUNT 3 X10'3 (140-440)
[2020-08-09 14:17] VITALS: BP 140/86
[2020-08-09 14:20] LABS: TOTAL CELLS COUNTED 100
[2020-08-09 14:21] LABS: PLATELET ESTIMATE DECREASED
--- NOTE | 2020-08-09 14:21 | NUR ---
SECOND UNIT OF PLATELETS STARTED.
[2020-08-09 14:22] LABS: LACTATE DEHYDROGENASE 268 U/L (85-227)
--- NOTE | 2020-08-09 14:26 | NUR ---
250ML DARK BLOODY URINE NOTED FROM PATIENT'S URINAL.
--- NOTE | 2020-08-09 14:33 | NUR ---
TOLERATING PLATELET INFUSION,CALL LIGHT WITHIN REACH,NO NOTED ADVERSE REACTION FROM INFUSION.
[2020-08-09 14:35] VITALS: BP 141/87
[2020-08-09 14:48] LABS: CLARITY,URINE BLOODY (Clear); COLOR,URINE BROWN (Yellow); UA COLLECTION TYPE CLN CATCH MIDSTREAM
[2020-08-09 15:01] LABS: BACTERIA,URINE 3+ /HPF (Neg); RBC,URINE TNTC /HPF (0-2); SQUAMOUS EPITHELIAL CELL,UR FEW /LPF (FEW)
--- NOTE | 2020-08-09 15:18 | NUR ---
SECOND UNIT OF PLATELETS HAS FINISHED, PT TOLERATED WELL.
--- NOTE | 2020-08-09 16:44 | NUR ---
PATIENT IN THE ROOM AWAKE,CALL LIGHT WITHIN REACH.
[2020-08-09 17:16] LABS: BASOPHILS % (AUTO) 0.4 % (0-1); EOSINOPHILS # (AUTO) 0.1 X10'3 (0-0.9); EOSINOPHILS % (AUTO) 0.7 % (0-6); HEMATOCRIT 44.2 % (42.0-52.0); HEMOGLOBIN 15.1 g/dl (14.0-17.9); LYMPHOCYTES # (AUTO) 1.4 X10'3 (1.1-4.8); MEAN CORPUSCULAR HEMOGLOBIN 27.8 PG (27.0-31.0); MEAN CORPUSCULAR HGB CONC 34.2 g/dL (33.0-36.5); MEAN CORPUSCULAR VOLUME 81.3 FL (78-98); MEAN PLATELET VOLUME 10.7 FL (7.4-10.4); MONOCYTES # (AUTO) 1.4 X10'3 (0-0.9); MONOCYTES % (AUTO) 14.2 % (2-12); NEUTROPHILS % (AUTO) 70.7 % (42-75); RED BLOOD COUNT 5.43 X10'6 (4.70-6.10); RED CELL DISTRIBUTION WIDTH 14.1 % (11.5-14.5); WHITE BLOOD COUNT 9.9 X10'3 (4.5-11.0)
[2020-08-09 17:35] LABS: PLATELET COUNT 4 X10'3 (140-440)
[2020-08-09 18:36] VITALS: BP 137/81
== END 2020-08-09 18:39 | disposition short-term general hospital (02) ==
LOC: ER 11:00
DX: U07.1 COVID-19 (principal); D69.3 Immune thrombocytopenic purpura; F17.200 Nicotine dependence, unspecified, uncomplicated; Z79.2 Long term (current) use of antibiotics; Z79.899 Other long term (current) drug therapy
CPT/HCPCS: 36415; 36430; 71045; 80053; 81001; 83010; 83615; 85007; 85025; 85379; 85384; 85610; 85730; 86885; 86900; 86901; 87088; 93005; 99291; 99292; P9035

== ENCOUNTER 2021-02-07 18:55 | Emergency (ER) | payer OTHER, MEDICAID ==
[~2021-02-07] VITALS: Ht 180.3 cm; Wt 108.2 kg
[2021-02-07 18:58] VITALS: BP 154/99
[2021-02-07 20:25] LABS: BASOPHILS # (AUTO) 0.1 X10'3 (0-0.2); BASOPHILS % (AUTO) 1.1 % (0-1); EOSINOPHILS # (AUTO) 0.1 X10'3 (0-0.9); EOSINOPHILS % (AUTO) 1.7 % (0-6); HEMATOCRIT 46.9 % (42.0-52.0); HEMOGLOBIN 15.7 g/dl (14.0-17.9); LYMPHOCYTES # (AUTO) 2.3 X10'3 (1.1-4.8); MEAN CORPUSCULAR HEMOGLOBIN 28.9 PG (27.0-31.0); MEAN CORPUSCULAR HGB CONC 33.4 g/dL (33.0-36.5); MEAN CORPUSCULAR VOLUME 86.4 FL (78-98); MEAN PLATELET VOLUME 9.1 FL (7.4-10.4); MONOCYTES % (AUTO) 11.8 % (2-12); NEUTROPHILS % (AUTO) 58.4 % (42-75); PLATELET COUNT 87 X10'3 (140-440); RED BLOOD COUNT 5.42 X10'6 (4.70-6.10); RED CELL DISTRIBUTION WIDTH 15.1 % (11.5-14.5); WHITE BLOOD COUNT 8.6 X10'3 (4.5-11.0)
[2021-02-07 20:35] LABS: ALANINE AMINOTRANSFERASE 45 U/L (12-78); ALBUMIN 3.4 G/DL (3.4-5.0); ALKALINE PHOSPHATASE 80 IU/L (46-116); ANION GAP 6 (8-16); ASPARTATE AMINO TRANSFERASE 29 U/L (10-37); BILIRUBIN,TOTAL 0.3 MG/DL (0.1-1.0); BLOOD UREA NITROGEN 12 MG/DL (7-18); BUN/CREATININE RATIO 11.9 (5.4-32.0); CALCIUM 7.8 MG/DL (8.5-10.1); CHLORIDE 107 MMOL/L (99-107); CREATININE 1.01 MG/DL (0.60-1.10); GLUCOSE 82 MG/DL (70-104); POTASSIUM 3.8 MMOL/L (3.5-5.1); SODIUM 143 MMOL/L (135-145); TOTAL CARBON DIOXIDE 30.5 MMOL/L (24-32); TOTAL PROTEIN 6.7 G/DL (6.4-8.2); eGFR 81 ML/MIN
== END 2021-02-07 21:10 | disposition home or self-care (01) ==
LOC: ER 18:55
DX: R51.9 Headache, unspecified (principal); D69.6 Thrombocytopenia, unspecified; D69.3 Immune thrombocytopenic purpura; F17.200 Nicotine dependence, unspecified, uncomplicated; F12.90 Cannabis use, unspecified, uncomplicated; Z79.2 Long term (current) use of antibiotics; Z79.899 Other long term (current) drug therapy
CPT/HCPCS: 36415; 70450; 80053; 85025; 99284

== ENCOUNTER 2021-05-16 17:01 | Emergency (ER) | payer OTHER, MEDICAID ==
[~2021-05-16] VITALS: Ht 180.3 cm; Wt 100.0 kg
[2021-05-16] MEDS ORDERED: LORazepam 2 mg/ml vial IM ONE (18:05)
[2021-05-16] MEDS ORDERED: diphenhydrAMINE 50 mg/ml inj IM ONE (18:05)
[2021-05-16] MEDS ORDERED: haloperidol lactate 5mg/ml inj IM ONE (18:05)
--- NOTE | 2021-05-16 18:25 | NUR ---
Pt escalating and is responding to internal stimuli as well as female staff that walked by. Pt spit in hand and proceeded to place hand in pants. Pt unable to direct to appropriate behavior and required security and ED staff to safely secure as to medicate pt. Pt placed in 4 point restraints and required medication. Reported off pt behavior, medication and short term use of restraints to MD Ron Flores updated and aware of restraint use.
--- NOTE | 2021-05-16 18:35 | NUR ---
Care assumed of patient. Patient appears upset. Patient in X4 restraints placed by day shift.
--- NOTE | 2021-05-16 19:06 | NUR ---
Unable to complete full physical assessment due to patient's agitation.
--- NOTE | 2021-05-16 19:40 | NUR ---
Patient appears agitated in restraints and delusional. Patient grabbing at staff and making threatening lunges at staff while in restraints.
[2021-05-16 20:06] LABS: BASOPHILS % (AUTO) 0.4 % (0-1); EOSINOPHILS % (AUTO) 0.2 % (0-6); HEMATOCRIT 39.8 % (42.0-52.0); HEMOGLOBIN 13.6 g/dl (14.0-17.9); LYMPHOCYTES # (AUTO) 1.2 X10'3 (1.1-4.8); LYMPHOCYTES % (AUTO) 14.7 % (21-51); MEAN CORPUSCULAR HEMOGLOBIN 28.8 PG (27.0-31.0); MEAN CORPUSCULAR HGB CONC 34.2 g/dL (33.0-36.5); MEAN CORPUSCULAR VOLUME 84.2 FL (78-98); MEAN PLATELET VOLUME 9.2 FL (7.4-10.4); MONOCYTES # (AUTO) 1.1 X10'3 (0-0.9); MONOCYTES % (AUTO) 13.4 % (2-12); NEUTROPHILS # (AUTO) 5.7 X10'3 (1.8-7.7); NEUTROPHILS % (AUTO) 71.3 % (42-75); PLATELET COUNT 142 X10'3 (140-440); RED BLOOD COUNT 4.72 X10'6 (4.70-6.10); RED CELL DISTRIBUTION WIDTH 14.2 % (11.5-14.5)
--- NOTE | 2021-05-16 20:10 | NUR ---
Patient presents as agitated. Patient continues to be in restraints for behavior. Patient became violent and combative through restraints when attempted to obtain needed lab specimens. Patient required security staff to come and help restrain patient.
[2021-05-16 20:20] LABS: ALANINE AMINOTRANSFERASE 34 U/L (12-78); ALBUMIN 3.6 G/DL (3.4-5.0); ALBUMIN/GLOBULIN RATIO 1.3 (1.1-1.5); ALKALINE PHOSPHATASE 55 IU/L (46-116); ANION GAP 9 (8-16); ASPARTATE AMINO TRANSFERASE 51 U/L (10-37); BILIRUBIN,TOTAL 0.8 MG/DL (0.1-1.0); BLOOD UREA NITROGEN 13 MG/DL (7-18); BUN/CREATININE RATIO 12.3 (5.4-32.0); CALCIUM 8.2 MG/DL (8.5-10.1); CHLORIDE 109 MMOL/L (99-107); CREATININE 1.06 MG/DL (0.60-1.10); GLUCOSE 97 MG/DL (70-104); POTASSIUM 3.5 MMOL/L (3.5-5.1); SODIUM 142 MMOL/L (135-145); TOTAL CARBON DIOXIDE 24.2 MMOL/L (24-32); TOTAL PROTEIN 6.4 G/DL (6.4-8.2); eGFR 77 ML/MIN
[2021-05-16 20:36] LABS: CLARITY,URINE SLIGHTLY CLOUDY (Clear); COLOR,URINE YELLOW (Yellow); GLUCOSE, URINE NEGATIVE (Neg); KETONES,URINE 40 mg/dl (Neg); OCCULT BLOOD,URINE LARGE (Neg); PROTEIN,URINE 300 mg/dl (Neg); UA COLLECTION TYPE STRAIGHT CATH
[2021-05-16 20:36] LABS: ETHANOL < 0.010 GM/DL (0.0-0.010)
[2021-05-16 20:37] LABS: CELLULAR CAST 0-4 /LPF (NEGATIVE); LEUKOCYTE ESTERASE ,URINE NEGATIVE (Neg); NITRITES, URINE NEGATIVE (Neg); UROBILINOGEN,URINE 0.2 E.U/dL (0.2-1.0)
[2021-05-16 20:38] LABS: MUCUS STRANDS FEW /LPF (Neg); SQUAMOUS EPITHELIAL CELL,UR FEW /LPF (FEW)
[2021-05-16 20:39] LABS: BACTERIA,URINE 1+ /HPF (Neg); RBC,URINE 20-50 /HPF (0-2)
[2021-05-16 20:48] LABS: URINE AMPHETAMINE SCREEN NEGATIVE (Neg); URINE BARBITUATE SCREEN NEGATIVE (Neg); URINE BENZODIAZEPINES SCREEN NEGATIVE (Neg); URINE CANNABINOID SCREEN POSITIVE (Neg); URINE COCAINE SCREEN NEGATIVE (Neg); URINE METHADONE SCREEN NEGATIVE (Neg); URINE OPIATE SCREEN NEGATIVE (Neg); URINE PHENCYCLIDINE SCREEN NEGATIVE (Neg)
--- NOTE | 2021-05-16 21:15 | NUR ---
Unable to obtain full set of vitals due to patient agitation.
--- NOTE | 2021-05-16 21:20 | NUR ---
Patient continuing to display disorganized and bizarre behavior while in restaints. Patient incoherent and not able to contracts for safety at this time.
--- NOTE | 2021-05-16 22:13 | NUR ---
Dr. Francois notified of patient's expiring restraint order at this time. Provider notified and made aware of continued need for restraints. Provider agreed with continued need for restraints and stated would continue order.
--- NOTE | 2021-05-16 23:10 | NUR ---
Unable to obtain full set of vitals due to patient agitation.
--- NOTE | 2021-05-16 23:20 | NUR ---
Patient continuing to display erratic behavior, making strange noises and appears grossly delusional. Unable to contract or communicate safety plan at this time. Restraints continued. Circulation has been intact, and pulse ox readings stable. Pulse ox was placed approximately two hours ago on patient for continous monitoring with stable readings.
--- NOTE | 2021-05-17 00:20 | NUR ---
Patient beginning to relax and appearing more restful. Beginning to consider releasing patient from restraints as patient appearing more relaxed, not threatening staff, and able to communicate appropriately. Patient needs attended to - given water, had previously offered toileting to patient. Pulse ox readings continue to be stable.
--- NOTE | 2021-05-17 01:00 | NUR ---
Patient restraints dc'd. Patient able to contract for safety and appears much calmer. Patient pulse ox readings have been stable. Circulation intact. No acute issues or injuries noted.
--- NOTE | 2021-05-17 06:05 | NUR ---
Patient asked for urinal to use the restroom. Urinal provided. When this film writer returned to receive urinal back, patient was found to be drinking urine from urinal. Patient was given juice as an alternative.
--- NOTE | 2021-05-17 10:37 | NUR ---
Pt. transferred from the main ER via a w/c accompanied by two techs. He was helped to bed.
--- NOTE | 2021-05-17 11:29 | NUR ---
Pt. was given a snack upon request and is up in the bathroom at this time brushing his teeth, will continue to monitor closely
--- NOTE | 2021-05-17 12:04 | NUR ---
Pt. was cooperative with 1:1 assessment completed at bedside. He currently denies any S/I, H/I, or A/V/GILMORE. However, he does admit to paranoid thoughts that others want to hurt him and frequent substance abuse. Pt. presents with some ongoing disorganized thinking and is A&O X2, he states in a disorganized manner, "I'm just here to get help, can't control it and I yell at them and that hurts them, I miss my family." This content writer completed medication reconcilliation, pt. denies taking any current medications. This content writer will obtain records for medications taken at [facility] upon last admission in May 2020.
[2021-05-17] MEDS ORDERED: NO HOME MEDS (12:20)
--- NOTE | 2021-05-17 12:48 | NUR ---
Pt. is sleeping in bed at this time, HOB elevated, rr are even and unlabored
--- NOTE | 2021-05-17 13:06 | NUR ---
Per Dr. Kelly, pt. needs to be seen by phychiatrist from [facility] in order to re-start psychiatric medications at an appropriate dose since he has not taken them since his last admission in May 2020. Also, no need to treat elevated WBCs in pts' urine at this time as pt. is not c/o any dysuria. Addendum: 05/17/21 at 1346 by ROBIN This proposal lead writer notified psychiatrist YARELIS Carter
--- NOTE | 2021-05-17 13:19 | NUR ---
Covid [employer] screen completed and sent to lab, pt. had a difficult time holding still in order to complete screening and his hands had to be held in place during completion so he did not srike at staff.
--- NOTE | 2021-05-17 14:32 | NUR ---
Pt. awake at this time and V/S being taken, no s/s of distress. Per [facility] V/S, Covid results, and an EKG are needed. Addendum: 05/17/21 at 1439 by ROBIN Pt's V/S WNL, however spoke with Dr. Gillis and no EKG ordered at this time (after he spoke to pt's [place] doctor). Endorsed to [facility]. V/S and negative COVID test faxed.
--- NOTE | 2021-05-17 16:00 | NUR ---
Pt. up to use the BR at this time, he is able to do so independently. Pt. is noted to be responding to internal stimuli and making some bizarre guestures. He returns to bed, will continue to monitor.
--- NOTE | 2021-05-17 16:57 | NUR ---
Per [facility] pt. accepted at [facility] by Dr. Adair. He will be picked up for transport at 1845. Will endorse to pt. and Noc shift. Addendum: 05/17/21 at 1734 by ROBIN This life underwriter attempted to call [facility] and give a [id number] report, howevever was unable to reach anyone. Left a message and a phone number for staff to call back regarding pt. transfer. Will endorse to NOC shift.
--- NOTE | 2021-05-17 17:13 | NUR ---
Pt. sleeping at this time, laying on his left side, rr even and unlabored.
--- NOTE | 2021-05-17 17:50 | NUR ---
Called Lyndsay SALAZAR [phone] and gave [id number] report to FRANNY Strauss
--- NOTE | 2021-05-17 18:33 | NUR ---
The patient is sitting up and eating his dinner. Polite and presents as calm. He is aware that [facility].
[2021-05-17 18:59] VITALS: BP 129/88
== END 2021-05-17 19:02 ==
LOC: ER 17:02
DX: F79 Unspecified intellectual disabilities (principal); Z20.822 Contact with and (suspected) exposure to COVID-19; F23 Brief psychotic disorder; R45.1 Restlessness and agitation; F12.10 Cannabis abuse, uncomplicated; F15.10 Other stimulant abuse, uncomplicated; Z79.2 Long term (current) use of antibiotics; Z79.899 Other long term (current) drug therapy
CPT/HCPCS: 36415; 80053; 80305; 80320; 81001; 84443; 85025; 87635; 96372; 99285; C9803; J1200; J1630; J2060